=== PATIENT | female | born 1970 | race Caucasian/White ===

== ENCOUNTER 2018-08-01 13:38 | Emergency (ER) | payer BC ==
--- NOTE | 2018-08-01 14:09 | ED ---
HPI Chest Pain - HPI Summary HPI Summary: This patient is a 47 year old F presenting to [facility] accompanied by her mother with a chief complaint of waxing and waning right sided CP for the last month. She describes the pain as located in her pectoral area, shoulder blade, armpit, and lung. Although she states she is the most comfortable now that she has been in months. The patient rates the pain 4/10 in severity and states it radiates to bilateral UEs. She describes the sx as a reverse heart attack. Symptoms aggravated by movement. Symptoms alleviated by lying, meditation, and rest. Patient reports dizziness, nausea, feeling faint, and increased stress due to recent move. 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 She states she has seen multiple doctors for this and no one is able to treat her properly and it is accumulating and getting worse every year. Takes cymbalta , Prilosec, muscle relaxers, and buspar. Gabapentin makes her feel retarded stopped taking it. - History of Current Complaint Chief Complaint: EDChestPainROMI Time Seen by Provider: 08/01/18 13:54 Hx Obtained From: Patient Onset/Duration: Started Weeks Ago - around 4, Still Present Timing: Constant Initial Severity: Moderate Current Severity: Moderate Pain Intensity: 4 Pain Scale Used: 0-10 Numeric Chest Pain Location: Left Anterior, Left Lateral Chest Pain Radiates: Yes Chest Pain Radiates To:: Arm Associated Signs and Symptoms: Positive: Chest Pain, Anxiety, Other: - dizzy nausea - Allergy/Home Medications Allergies/Adverse Reactions: Allergies Allergy/AdvReac Type Severity Reaction Status Date / Time codeine Allergy Nausea And Verified 08/01/18 13:45 Vomiting fentanyl Allergy Unknown Verified 08/01/18 13:46 Reaction Details Iodinated Contrast- Oral and Allergy Shortness Verified 08/01/18 13:47 IV Dye of Breath meperidine [From Demerol] Allergy Numbness Verified 08/01/18 13:45 And Tingling Home Medications: Home Medications Cyclobenzaprine TAB* [Flexeril 10 MG TAB*] 10 - 20 mg PO TID 08/01/18 [History Confirmed 08/01/18] DULoxetine DR CAP* [Cymbalta CAP*] 60 mg PO DAILY 08/01/18 [History Confirmed ] Omeprazole CAP* [Prilosec CAP* 20 MG] 20 mg PO DAILY 08/01/18 [History Confirmed 08/01/18] busPIRone TAB* [Buspar TAB*] 10 mg PO DAILY 08/01/18 [History Confirmed 08/01/18 ] hydroCHLOROthiazide [Hydrochlorothiazide] 12 - 25 mg PO DAILY 08/01/18 [History Confirmed 08/01/18] PMH/Surg Hx/FS Hx/Imm Hx Respiratory History: Reports: Hx Asthma, Hx Seasonal Allergies Denies: Hx Chronic Obstructive Pulmonary Disease (COPD) Sensory History: Reports: Hx Contacts or Glasses Opthamlomology History: Reports: Hx Contacts or Glasses Neurological History: Reports: Hx Migraine, Hx Nerve Disease, Other Neuro Impairments/Disorders - DDD Psychiatric History: Reports: Hx Anxiety, Hx Depression Infectious Disease History: No Infectious Disease History: Denies: Traveled Outside the [place] in Last 30 Days - Family History Known Family History: Positive: Hypertension - Social History Alcohol Use: None Hx Substance Use: No Substance Use Type: Reports: None Hx Tobacco Use: No Smoking Status (MU): Never Smoked Tobacco Review of Systems Positive: Chest Pain Positive: Nausea Neurological: Other - "feeling faint and dizziness Positive: Anxious, Other - stress All Other Systems Reviewed And Are Negative: Yes Physical Exam - Summary Physical Exam Summary: Appearance: The patient is well-nourished in no acute distress and in no acute pain. Skin: The skin is warm and dry and skin color reflects adequate perfusion. HEENT: The head is normocephalic and atraumatic. The pupils are equal and reactive. The conjunctivae are clear and without drainage. Nares are patent and without drainage. Mouth reveals moist mucous membranes and the throat is without erythema and exudate. The external ears are intact. The ear canals are patent and without drainage. The tympanic membranes are intact. Neck: The neck is supple with full range of motion and non-tender. There are no carotid bruits. There is no neck vein distension. Respiratory: Chest is non-tender. Lungs are clear to auscultation and breath sounds are symmetrical and equal. Cardiovascular: borderline tachycardia . There is no murmur or rub auscultated. There is no peripheral edema and pulses are symmetrical and equal. Abdomen: The abdomen is soft and non-tender. There are normal bowel sounds heard in all four quadrants and there is no organomegaly palpated. Musculoskeletal: Extremities are non-tender with full range of motion. There is good capillary refill. There is no peripheral edema or calf tenderness elicited. TTP in the left rhomboid and superior trapezius Neurological: Patient is alert and oriented to person, place and time. The patient has symmetrical motor strength in all four extremities. Cranial nerves are grossly intact. Deep tendon reflexes are symmetrical and equal in all four extremities. Psychiatric: The patient has an appropriate affect and does not exhibit any anxiety or depression. Triage Information Reviewed: Yes Vital Signs On Initial Exam: Initial Vitals Temp Pulse Resp BP Pulse Ox 99.1 F 114 20 191/117 100 08/01/18 13:42 08/01/18 13:42 08/01/18 13:42 08/01/18 13:42 08/01/18 13:42 Vital Signs Reviewed: Yes Diagnostics - Vital Signs Vital Signs Temp Pulse Resp BP Pulse Ox 08/01/18 13:59 98 08/01/18 13:46 103 15 187/125 100 08/01/18 13:44 115 99 08/01/18 13:42 99.1 F 114 20 191/117 100 - Laboratory Result Diagrams: 08/01/18 14:02 08/01/18 14:02 Lab Statement: Any lab studies that have been ordered have been reviewed, and results considered in the medical decision making process. - Radiology CXR Radiology Interpretation Completed By: Radiologist Summary of Radiographic Findings: no active cardiopulmonary disease. ED physician has reviewed this radiology report. - EKG 1354' Cardiac Rate: NL EKG Rhythm: Sinus Rhythm - at 99 BPM Summary of EKG Findings: Normal sinus rhythm, normal ST, no ectopy, no STEMI Chest Pain Course/Dx - Course Course Of Treatment: Ms. Mathew presented to the emergency department complaining of right-sided chest, shoulder and arm pain which has been present intermittently for at least 2 months. She has had a lot of problems with her neck and had 3 MRIs and 3 consultations with neurosurgeons. She has seen pain specialists in [place]. She sold her house and has a closing date on a new house in [place] but for now is staying in [place] and has been moving possessions a lot. She was nontoxic in appearance and her vital signs are stable here. Her workup including labs and x-ray was negative and I think this is a radicular pain, probably exacerbated by her recent physical exertion. - Diagnoses Provider Diagnoses: Cervical radiculopathy Discharge - Sign-Out/Discharge Documenting (check all that apply): Patient Departure - Discharge Plan Condition: Stable Disposition: HOME Patient Education Materials: Cervical Radiculopathy (ED) Referrals: [facility] [Outside] - 3 Days [facility] [Outside] - 3 Days Additional Instructions: RETURN TO THE EMERGENCY DEPARTMENT FOR CHANGING OR WORSENING SYMPTOMS - Billing Disposition and Condition Condition: STABLE Disposition: Home - Attestation Statements Document Initiated by Christyibe: Yes Documenting Scribe: Jorge Burciaga Provider For Whom Christyibe is Documenting (Include Credential): John Houston MD Scribe Attestation: Jorge Polo , terryed for John Houston MD on 08/01/18 at 1847. Scribe Documentation Reviewed: Yes Provider Attestation: The documentation as recorded by the Jorge thorpe accurately reflects the service I personally performed and the decisions made by me, John Houston MD
[2018-08-01] MEDS ORDERED: LORazepam INJ* 2 MG/ML 1 ML VIAL IV ONE (14:13)
[2018-08-01 14:17] LABS: ABS Basophils 0 10^3/ul (0-0.2); ABS Eosinophils 0.2 10^3/ul (0-0.6); ABS Lymphocytes 2.1 10^3/ul (1.0-4.8); ABS Monocytes 0.5 10^3/ul (0-0.8); ABS Neutrophils 3.5 10^3/ul (1.5-7.7); ABS Nucleated RBC 0 10^3/ul; Eosinophil % 3.8 %; Hematocrit 43 % (35-47); Hemoglobin 14.2 g/dl (12.0-16.0); Lymphocyte % 33.1 %; Mean Corpuscular HGB Conc 33 g/dl (31-36); Mean Corpuscular Hemoglobin 29 pg (27-31); Mean Corpuscular Volume 87 fL (80-97); Mean Platelet Volume 8.4 fL (7.4-10.4); Nucleated Red Blood Cells % 0.2; Platelet Count 289 10^3/ul (150-450); Red Blood Count 4.89 10^6/ul (4.00-5.40); Red Cell Distribution Width 14 % (10.5-15); White Blood Count 6.4 10^3/ul (3.5-10.8)
[2018-08-01 14:29] LABS: INR 0.97 (0.77-1.02)
[2018-08-01 14:39] LABS: EGFR Non-African American 77.4 (>60)
[2018-08-01 16:30] VITALS: BP 167/109
== END 2018-08-01 16:29 | disposition home or self-care (01) ==
LOC: ED 13:38
DX: M54.12 Radiculopathy, cervical region (principal); J45.909 Unspecified asthma, uncomplicated; F32.9 Major depressive disorder, single episode, unspecified; F41.9 Anxiety disorder, unspecified
CPT/HCPCS: 36415; 71045; 80053; 83605; 83880; 84484; 85025; 85379; 85610; 93005; 96374; 99283; J2060